=== PATIENT | female | born 1975 | race Caucasian/White ===

== ENCOUNTER 2017-11-01 18:10 | Emergency (ER) | payer MEDICAID ==
--- NOTE | 2017-11-01 18:59 | EDM.PDOCBH ---
ED HPI GENERAL MEDICAL PROBLEM - General Chief Complaint: Behavioral/Psych Stated Complaint: EVALUATION Time Seen by Provider: 11/01/17 18:30 Source of Information: Reports: Patient History Limitations: Reports: No Limitations - History of Present Illness INITIAL COMMENTS - FREE TEXT/NARRATIVE: Jani comes to [facility] ED with LE for medical clearance to be admitted to [facility]. [facility] was released from [facility] today following a hearing regarding property theft. She reports mixed emotions and much stress. She is not suicidal or homicidal. She is on no prescription meds. Past Medical History - Infectious Disease History Infectious Disease History: Reports: Other (See Below) (Lymes Disease 2010) - Past Surgical History Female Surgical History: Reports: Breast Biopsy, Hysterectomy ED ROS GENERAL - Review of Systems Review Of Systems: See Below Constitutional: Reports: Malaise, Decreased Appetite HEENT: Reports: No Symptoms Respiratory: Reports: No Symptoms Cardiovascular: Reports: No Symptoms Endocrine: Reports: No Symptoms GI/Abdominal: Reports: No Symptoms : Reports: No Symptoms Musculoskeletal: Reports: Neck Pain, Back Pain, Joint Pain, Muscle Stiffness Skin: Reports: No Symptoms Neurological: Reports: Pre-Existing Deficit Psychiatric: Reports: Depression Hematologic/Lymphatic: Reports: No Symptoms Immunologic: Reports: No Symptoms ED EXAM, BEHAVIORAL HEALTH - Physical Exam Exam: See Below Exam Limited By: No Limitations General Appearance: Alert, WD/WN, No Apparent Distress, Obese Eye Exam: Bilateral Eye: EOMI, Normal Inspection, PERRL Ears: Normal External Exam Nose: Normal Inspection Throat/Mouth: Normal Inspection, Normal Lips, Normal Teeth, Normal Oropharynx, Normal Voice Head: Normocephalic Neck: Normal Inspection, Supple, Non-Tender Respiratory/Chest: Lungs Clear, Normal Breath Sounds, Chest Non-Tender Cardiovascular: Regular Rate, Rhythm, No Murmur GI/Abdominal: Normal Bowel Sounds, Soft, Non-Tender, No Organomegaly, No Distention, No Mass (Female) Exam: Deferred Rectal (Female) Exam: Deferred Back Exam: Normal Inspection Extremities: Normal Inspection, Other (joint pain in both knees) Neurological: Alert, CN II-XII Intact, Normal Gait, Normal Reflexes, No Motor/ Sensory Deficits, Oriented x 3 Psychiatric: Depressed Mood Skin Exam: Warm, Dry, Intact, Normal color COURSE, BEHAVIORAL HEALTH COMP - Course Vital Signs: Jani is cleared medically for admission to [facility]. Orders, Labs, Meds: Active Orders 24 hr Category Date Time Status DRUG SCREEN, URINE ALERE [URCHEM] Stat Lab 11/01/17 19:00 Ordered TSH ULTRASENSITIVE [CHEM] Stat Lab 11/01/17 19:45 Received Laboratory Tests 11/01/17 11/01/17 11/01/17 Range/Units 19:00 19:45 19:45 WBC 6.3 (4.5-12.0) X10-3/uL RBC 4.56 (3.23-5.20) x10(6)uL Hgb 13.8 (11.5-15.5) g/dL Hct 39.8 (30.0-51.3) % MCV 87.4 (80-96) fL MCH 30.3 (27.7-33.6) pg MCHC 34.6 (32.2-35.4) g/dL RDW 12.4 (11.5-15.5) % Plt Count 189 (125-369) X10(3)uL MPV 10.1 (7.4-10.4) fL Neut % (Auto) 51.5 (46-82) % Lymph % (Auto) 37.4 H (13-37) % [place] % (Auto) 8.9 (4-12) % Eos % (Auto) 2 (1.0-5.0) % Baso % (Auto) 1 (0-2) % Neut # (Auto) 3.2 (1.6-8.3) # Lymph # (Auto) 2.4 (0.6-5.0) # [place] # (Auto) 0.6 (0.0-1.3) # Eos # (Auto) 0.1 (0.0-0.8) # Baso # (Auto) 0.0 (0.0-0.2) # Sodium 140 (135-145) mmol/L Potassium 3.7 (3.5-5.3) mmol/L Chloride 104 (100-110) mmol/L Carbon Dioxide 29 (21-32) mmol/L BUN 9 (7-18) mg/dL Creatinine 0.9 (0.55-1.02) mg/dL Est Cr Clr Drug Dosing TNP Estimated GFR (MDRD) > 60 (>60) BUN/Creatinine Ratio 10.0 (9-20) Glucose 90 (80-116) mg/dL Calcium 9.4 (8.6-10.2) mg/dL Total Bilirubin 0.4 (0.1-1.3) mg/dL AST 26 H (5-25) IU/L ALT 47 H (12-36) U/L Alkaline Phosphatase 53 L (56-112) IU/L Total Protein 7.3 (6.0-8.0) g/dL Albumin 3.6 (3.5-5.2) g/dL Globulin 3.7 g/dL Albumin/Globulin Ratio 1.0 Salicylates 2.2 L (2.8-20.0) mg/dL Urine Opiates Screen Negative (NEGATIVE) Ur Oxycodone Screen Negative (NEGATIVE) Ur Propoxyphene Screen Negative (NEGATIVE) Acetaminophen < 2 L (10-30) ug/mL Ur Barbituates Screen Negative (NEGATIVE) Ur Tricyclics Screen Negative (NEGATIVE) Ur Phencyclidine Scrn Negative (NEGATIVE) Ur Amphetamine Screen Negative (NEGATIVE) Urine MDMA Screen Negative (NEGATIVE) U Benzodiazepines Scrn Negative (NEGATIVE) U Cocaine Metab Screen Negative (NEGATIVE) U Marijuana (THC) Screen Positive H (NEGATIVE) Ethyl Alcohol (<0.03) % 11/01/17 Range/Units 19:45 WBC (4.5-12.0) X10-3/uL RBC (3.23-5.20) x10(6)uL Hgb (11.5-15.5) g/dL Hct (30.0-51.3) % MCV (80-96) fL MCH (27.7-33.6) pg MCHC (32.2-35.4) g/dL RDW (11.5-15.5) % Plt Count (125-369) X10(3)uL MPV (7.4-10.4) fL Neut % (Auto) (46-82) % Lymph % (Auto) (13-37) % [place] % (Auto) (4-12) % Eos % (Auto) (1.0-5.0) % Baso % (Auto) (0-2) % Neut # (Auto) (1.6-8.3) # Lymph # (Auto) (0.6-5.0) # [place] # (Auto) (0.0-1.3) # Eos # (Auto) (0.0-0.8) # Baso # (Auto) (0.0-0.2) # Sodium (135-145) mmol/L Potassium (3.5-5.3) mmol/L Chloride (100-110) mmol/L Carbon Dioxide (21-32) mmol/L BUN (7-18) mg/dL Creatinine (0.55-1.02) mg/dL Est Cr Clr Drug Dosing Estimated GFR (MDRD) (>60) BUN/Creatinine Ratio (9-20) Glucose (80-116) mg/dL Calcium (8.6-10.2) mg/dL Total Bilirubin (0.1-1.3) mg/dL AST (5-25) IU/L ALT (12-36) U/L Alkaline Phosphatase (56-112) IU/L Total Protein (6.0-8.0) g/dL Albumin (3.5-5.2) g/dL Globulin g/dL Albumin/Globulin Ratio Salicylates (2.8-20.0) mg/dL Urine Opiates Screen (NEGATIVE) Ur Oxycodone Screen (NEGATIVE) Ur Propoxyphene Screen (NEGATIVE) Acetaminophen (10-30) ug/mL Ur Barbituates Screen (NEGATIVE) Ur Tricyclics Screen (NEGATIVE) Ur Phencyclidine Scrn (NEGATIVE) Ur Amphetamine Screen (NEGATIVE) Urine MDMA Screen (NEGATIVE) U Benzodiazepines Scrn (NEGATIVE) U Cocaine Metab Screen (NEGATIVE) U Marijuana (THC) Screen (NEGATIVE) Ethyl Alcohol < 0.03 (<0.03) % Departure - Departure Time of Disposition: 20:15 Disposition: Home, Self-Care 01 Condition: Fair Clinical Impression: Adjustment reaction with mixed disturbance of emotions and conduct - Discharge Information *PRESCRIPTION DRUG MONITORING PROGRAM REVIEWED*: Not Applicable *COPY OF PRESCRIPTION DRUG MONITORING REPORT IN PATIENT RUSTY: Not Applicable Referrals: PCP,None [Primary Care Provider] - Forms: ED Department Discharge - Problem List & Annotations (1) Adjustment reaction with mixed disturbance of emotions and conduct SNOMED Code(s): 62250896 Code(s): F43.25 - ADJUSTMENT DISORDER W MIXED DISTURB OF EMOTIONS AND CONDUCT Status: Acute Current Visit: Yes Annotation/Comment:: Cleared to be admitted to [facility]. - Problem List Review Problem List Initiated/Reviewed/Updated: Yes - My Orders Last 24 Hours: My Active Orders 11/01/17 19:00 DRUG SCREEN, URINE ALERE [URCHEM] Stat 11/01/17 19:45 TSH ULTRASENSITIVE [CHEM] Stat - Assessment/Plan Last 24 Hours: My Active Orders 11/01/17 19:00 DRUG SCREEN, URINE ALERE [URCHEM] Stat 11/01/17 19:45 TSH ULTRASENSITIVE [CHEM] Stat Plan: Follow up with PCP.
[2017-11-01 20:11] LABS: ACETAMINOPHEN < 2 ug/mL (10-30)
== END 2017-11-01 20:28 | disposition home or self-care (01) ==
LOC: FB.ED 18:10
DX: F43.29 Adjustment disorder with other symptoms (principal)
CPT/HCPCS: 36415; 80053; 80305; 84443; 85025; 99283; G0480; 99282